=== PATIENT | female | born 1930 | race Caucasian/White ===

== ENCOUNTER 2018-11-27 10:23 | Inpatient (IN) | payer OTHER, BC ==
[2018-11-27 10:44] VITALS: BMI 29.0
[2018-11-27 12:32] LABS: BASO % 0.4 % (0-2.0); EOS % 2.4 % (0-4.5); HEMATOCRIT 38.9 % (32.4-45.2); HEMOGLOBIN 12.7 GM/dL (10.7-15.3); LYMPH % 39.9 % (8-40); MCH 28.3 pg (25.7-33.7); MCHC 32.6 g/dl (32.0-36.0); MEAN CELL VOLUME 86.8 fl (80-96); MEAN PLT VOLUME 9.5 fl (7.5-11.1); MONO % 7.3 % (3.8-10.2); PLATELET COUNT 236 K/MM3 (134-434); RBC 4.48 M/mm3 (3.60-5.2); RDW 14.5 % (11.6-15.6); WHITE BLOOD COUNT 10.8 K/mm3 (4.0-10.0)
[2018-11-27 12:35] LABS: PH,URINE 6.5 (5.0-8.0); URINE APPEARANCE CLEAR; URINE BILIRUBIN NEGATIVE (NEGATIVE); URINE COLOR YELLOW; URINE GLUCOSE (UA) NEGATIVE (NEGATIVE); URINE KETONE NEGATIVE (NEGATIVE); URINE LEUK ESTERASE NEGATIVE (NEGATIVE); URINE NITRITE NEGATIVE (NEGATIVE); URINE PROTEIN NEGATIVE (NEGATIVE)
[2018-11-27 12:46] LABS: INR 1.17 (0.83-1.09); PROTHROMBIN TIME (PATIENT) 13.8 SEC (9.7-13.0)
[2018-11-27 13:01] LABS: ALBUMIN 3.2 g/dl (3.4-5.0); ALK PHOS 102 U/L (45-117); ANION GAP 5 MMOL/L (8-16); BILIRUBIN,TOTAL 0.4 mg/dL (0.2-1); BLOOD UREA NITROGEN 44 mg/dL (7-18); CALCIUM 9.1 mg/dL (8.5-10.1); CHLORIDE 109 mmol/L (98-107); CO2 26 mmol/L (21-32); CREATININE 1.6 mg/dL (0.55-1.3); GLUCOSE,RANDOM 74 mg/dL (74-106); POTASSIUM 5.9 mmol/L (3.5-5.1); SGOT/AST 18 U/L (15-37); SGPT/ALT 14 U/L (13-61); SODIUM 140 mmol/L (136-145); TOT PROT 6.2 g/dl (6.4-8.2)
[2018-11-27] MEDS ORDERED: VANCOMYCIN 1,000 MG in DEXTROSE 5%-WATER - 250 ML IVPB ONE (13:06)
[2018-11-27] MEDS ORDERED: SODIUM CHLORIDE 0.9% 1000 ML INFUS.BAG IV ONE (13:11)
[2018-11-27] MEDS ORDERED: INSULIN REGULAR HUMAN 100 UNITS/ML *VIAL IVPUSH ONE (13:12)
[2018-11-27] MEDS ORDERED: DEXTROSE 50%-WATER - 25 GM/50 ML VIAL IVPUSH ONE (13:13)
[2018-11-27] MEDS ORDERED: VANCOMYCIN 1 GRAM (PRE-DOCKED) 1,000 MG/250 ML BAG IVPB ONE (13:27)
[2018-11-27] MEDS ORDERED: DEXTROSE 50%-WATER 25 GM/50 ML DISP.SYRIN ONE (13:27)
[2018-11-27] MEDS ORDERED: INSULIN REGULAR HUMAN 100 UNITS/ML *VIAL ONE (13:28)
--- NOTE | 2018-11-27 13:41 | PDOC ---
Documentation entered by Charlie Howard SCRIBE, acting as scribe for Magaly Melgar MD. Magaly Melgar MD: This documentation has been prepared by the Lee bailon Collisia, SCRIBE, under my direction and personally reviewed by me in its entirety. I confirm that the documentation accurately reflects all work, treatment, procedures, and medical decision making performed by me. History of Present Illness - General Chief Complaint: Wound Stated Complaint: LEG PAIN Time Seen by Provider: 11/27/18 11:19 History Source: Patient, Family Exam Limitations: No Limitations - History of Present Illness Initial Comments: 11/27/18 12:39 The patient is a 88 year old female with a significant past medical history of hyperlipidemia, hypertension, diabetes, lymphedema, hypothyroidism, left leg ulcer (2013) and CHF who presents to the emergency department with a left leg wound and redness since yesterday. The patient's daughter states that the patient was seen at urgent care yesterday for left leg erythema and drainage. They recommended a topical cream to apply to her leg and to return to daily for wound checks. Her daughter urged her to go to the ED today due to increasing pain and concern for infection. She denies any recent injury, numbness, tingling ,weakness or radiation or her pain. The patient denies any chills, nausea, vomiting, diarrhea, constipation urinary symptoms, chest pain, shortness of breath, headache or dizziness. She denies any other complaints. Past History - Past Medical History Allergies/Adverse Reactions: Allergies Allergy/AdvReac Type Severity Reaction Status Date / Time erythromycin base Allergy Intermediate Hives Verified 11/27/18 10:40 Penicillins Allergy Verified 11/27/18 14:18 Home Medications: Ambulatory Orders Levothyroxine [Synthroid -] 50 mcg PO DAILY 06/16/17 Lisinopril 10 mg PO DAILY 06/16/17 Memantine HCl [Namenda Xr] 28 mg PO DAILY 06/16/17 Metoprolol Succinate [Toprol Xl] 100 mg PO DAILY 06/16/17 Simvastatin 80 mg PO HS 06/16/17 metFORMIN HCL [Metformin HCl ER] 1,000 mg PO BID 06/16/17 Aspirin 81 mg PO DAILY 11/27/18 Anemia: No Asthma: No Cancer: No Cardiac Disorders: No CVA: Yes (TIA 1994) COPD: No CHF: No Dementia: No Diabetes: Yes GI Disorders: No Disorders: No HTN: Yes Hypercholesterolemia: Yes Liver Disease: No Seizures: No Thyroid Disease: Yes (HYPOTHYROIDISM) - Immunization History Immunization Up to Date: Yes - Suicide/Smoking/Psychosocial Hx Smoking History: Never smoked Hx Alcohol Use: No Drug/Substance Use Hx: No Review of Systems - Review of Systems Able to Perform ROS?: Yes Comments:: 11/27/18 12:39 GENERAL/CONSTITUTIONAL: No fever or chills. No weakness. HEAD, EYES, EARS, NOSE AND THROAT: No change in vision. No ear pain or discharge. No sore throat. GASTROINTESTINAL: No nausea, vomiting, diarrhea or constipation. GENITOURINARY: No dysuria, frequency, or change in urination. CARDIOVASCULAR: No chest pain or shortness of breath. RESPIRATORY: No cough, wheezing, or hemoptysis. MUSCULOSKELETAL: No joint or muscle swelling or pain. No neck or back pain. SKIN: (+)left leg erythema, pain and drainage. No rash NEUROLOGIC: No headache, vertigo, loss of consciousness, or change in strength/ sensation. ENDOCRINE: No increased thirst. No abnormal weight change. HEMATOLOGIC/LYMPHATIC: No anemia, easy bleeding, or history of blood clots. ALLERGIC/IMMUNOLOGIC: No hives or skin allergy. *Physical Exam - Vital Signs Last Vital Signs Temp Pulse Resp BP Pulse Ox 97.6 F 59 L 17 127/48 L 95 11/27/18 10:40 11/27/18 10:40 11/27/18 10:40 11/27/18 10:40 11/27/18 10:40 - Physical Exam Comments: 11/27/18 13:26 GENERAL: Awake, alert, oriented to name and place, in no acute distress EYES: PERRLA, EOMI, sclera anicteric, conjunctiva clear ENT: Oropharynx clear without exudates. Moist mucosa NECK: Normal ROM, supple, no lymphadenopathy, JVD, or masses LUNGS: Breath sounds equal, clear to auscultation bilaterally. No wheezes, and no crackles HEART: Regular rate and rhythm, normal S1 and S2, no murmurs, rubs or gallops ABDOMEN: Soft, nontender, normoactive bowel sounds. No guarding, no rebound. No masses EXTREMITIES: L distal calf with warmth, erythema and induration. 2+ DP pulse in LLE. NEUROLOGICAL: Normal speech, cranial nerves intact, equal strength and sensation b/l SKIN: Warm, Dry, normal turgor, no rashes or lesions noted. Heart Score/ECG Review #1 11/27/18 13:29 Twelve-lead EKG was performed and reviewed by me. Sinus bradycardia, rate 58. Normal axis. No ST elevations. No peaked T waves. ED Treatment Course - LABORATORY CBC & Chemistry Diagram: 11/28/18 06:30 11/28/18 06:30 - ADDITIONAL ORDERS Additional order review: Laboratory Results 11/27/18 11/27/18 11/27/18 12:10 12:10 11:55 PT with INR INR Sodium 140 Potassium 5.9 H Chloride 109 H Carbon Dioxide 26 Anion Gap 5 L BUN 44 H Creatinine 1.6 H Creat Clearance w eGFR 30.49 Random Glucose 74 Lactic Acid 1.0 Calcium 9.1 Total Bilirubin 0.4 AST 18 ALT 14 Alkaline Phosphatase 102 B-Natriuretic Peptide 802.3 H Total Protein 6.2 L Albumin 3.2 L Urine Color Urine Appearance Urine pH Ur Specific [place] Urine Protein Urine Glucose (UA) Urine Ketones Urine Blood Urine Nitrite Urine Bilirubin Urine Urobilinogen Ur Leukocyte Esterase 11/27/18 11/27/18 11:55 11:55 PT with INR 13.80 H INR 1.17 H Sodium Potassium Chloride Carbon Dioxide Anion Gap BUN Creatinine Creat Clearance w eGFR Random Glucose Lactic Acid Calcium Total Bilirubin AST ALT Alkaline Phosphatase B-Natriuretic Peptide Total Protein Albumin Urine Color Yellow Urine Appearance Clear Urine pH 6.5 Ur Specific [place] 1.025 Urine Protein Negative Urine Glucose (UA) Negative Urine Ketones Negative Urine Blood Negative Urine Nitrite Negative Urine Bilirubin Negative Urine Urobilinogen 1.0 Ur Leukocyte Esterase Negative 11/27/18 12:10 RBC 4.48 MCV 86.8 MCHC 32.6 RDW 14.5 MPV 9.5 Neutrophils % 50.0 Lymphocytes % 39.9 Monocytes % 7.3 Eosinophils % 2.4 Basophils % 0.4 - RADIOLOGY Radiology Studies Ordered: Category Date Time Status CHEST X-RAY PORTABLE* [RAD] Stat Radiology 11/27/18 11:56 Completed Medical Decision Making - Medical Decision Making 11/27/18 13:29 88yo F hx DM,HTN, HL, CHF presents to the ED with increasing distal LLE pain, redness, drainage c/f cellulitis. Vitals unremarkable. Exam consistent with cellultiis. In light of hx of DM, will cover empirically with vancomycin and G neg coverage - given mavis and PCN allergy will consult ID on dose/agent. PT stable hemodynamically . Labs with MAVIS to 44/1.6 and hyperK to 5.9. Treating with NS 500cc, D50 amp, Insulin 5 units Case discussed with Dr. oCuch, pt accepted for admission Case discussed in detail with admitting physician including history, physical exam and ancillary studies. Admitting physician has assumed care for the patient, will follow all pending diagnostics and will complete the evaluation and treatment. 11/27/18 16:[address] Holbrook, informed him that I covered the pt with Vanco but deferred to him for G- cvg given MAVIS and PCN allergy. Dr. Holbrook states he will order abx. *DC/Admit/Observation/Transfer Diagnosis at time of Disposition: Cellulitis - Discharge Dispostion Condition at time of disposition: Stable Decision to Admit order: Yes - Referrals - Patient Instructions - Post Discharge Activity - Attestations Physician Attestion: 11/27/18 14:10 I, Dr. Magaly Melgar MD, attest that this document has been prepared under my direction and personally reviewed by me in its entirety. I further attest, that it accurately reflects all work, treatment, procedures and medical decision -making performed by me.
[2018-11-27] MEDS ORDERED: METFORMIN HCL 1000 MG PO SCH (22:00)
[2018-11-27] MEDS ORDERED: [UNRECOGNIZED DRUG - OTHER] PO SCH (22:00)
[2018-11-27] MEDS: MEMANTINE HCL 10 MG TABLET (FP) PO SCH (23:04)
[2018-11-27] MEDS: ATORVASTATIN CA 80 MG TABLET (FP) PO SCH (23:04)
[2018-11-28] MEDS: LEVOTHYROXINE NA 50 MCG TABLET (FP) PO SCH (06:19)
[2018-11-28 07:15] LABS: HEMATOCRIT 38.6 % (32.4-45.2); HEMOGLOBIN 12.4 GM/dL (10.7-15.3); MCH 28.2 pg (25.7-33.7); MCHC 32.3 g/dl (32.0-36.0); MEAN CELL VOLUME 87.5 fl (80-96); MEAN PLT VOLUME 9.8 fl (7.5-11.1); PLATELET COUNT 219 K/MM3 (134-434); RBC 4.41 M/mm3 (3.60-5.2); RDW 14.5 % (11.6-15.6); WHITE BLOOD COUNT 12.2 K/mm3 (4.0-10.0)
[2018-11-28 07:58] LABS: ANION GAP 7 MMOL/L (8-16); BLOOD UREA NITROGEN 36 mg/dL (7-18); CALCIUM 8.9 mg/dL (8.5-10.1); CHLORIDE 108 mmol/L (98-107); CO2 25 mmol/L (21-32); CREATININE 1.6 mg/dL (0.55-1.3); GLUCOSE,RANDOM 82 mg/dL (74-106); SODIUM 140 mmol/L (136-145)
[2018-11-28] MEDS ORDERED: VANCOMYCIN 1 GM PREMIX - 1 GM/200 ML BAG IVPB ONE (09:11)
[2018-11-28] MEDS ORDERED: LISINOPRIL 5 MG TABLET (FP) PO SCH (10:00)
[2018-11-28] MEDS ORDERED: LEVOTHYROXINE NA 50 MCG TABLET (FP) PO SCH (10:00)
[2018-11-28] MEDS ORDERED: PT OWN MED DRAWER 7, Y5N ONE (10:04)
--- NOTE | 2018-11-28 10:19 | PN ---
Progress Note (short form) - Note Progress Note: ID CONSULT DICTATED CELLULITIS L LE +BC R/O SEPSIS SECONDARY TO SKIN SOURCE PCN ALLERGY AZOTEMIA AWAIT BC EMPIRIC VANCOMYCIN ELEVATION
[2018-11-28] MEDS: MEMANTINE HCL 10 MG TABLET (FP) PO SCH ×2 (10:43→21:10)
[2018-11-28] MEDS: ASPIRIN 81 MG CHEWABLE TABLETS PO SCH (10:43)
--- NOTE | 2018-11-28 10:58 | CONS ---
DATE OF CONSULTATION: DATE OF DICTATION: 11/28/2018 HISTORY OF PRESENT ILLNESS: The patient is an 88-year-old female evaluated for cellulitis of the left lower extremity. The patient does not give a reliable history. She states that approximately 1 day ago, she had developed erythema, warmth, and swelling of the left lower extremity. She had been seen in an urgent care center and was prescribed a topical ointment. She developed worsening pain and erythema. She presented to the emergency room where she was found to have cellulitis of the left lower extremity. She was empirically treated with vancomycin. She denies any traumatic injury to her left lower extremity. No insect or animal bites or scratches. She denies any associated fever or chills. No prior history of serious soft tissue infection requiring hospitalization or history of MRSA. According to the notes, [facility] Her last visit was in August of 2017 for a left leg wound, which completely healed. PAST MEDICAL HISTORY: Positive for chronic lower extremity lymphedema, hypertension, hyperlipidemia, diabetes mellitus, hypothyroidism, history of a left lower extremity ulcer, congestive heart failure. ALLERGIES: To PENICILLIN and ERYTHROMYCIN. Patient is unaware of the nature of the PENICILLIN allergy. MEDICATIONS: Include Synthroid, lisinopril, Namenda, Toprol, simvastatin, metformin, aspirin. SOCIAL HISTORY: She resides in the community. She is a nonsmoker, nondrinker. SYSTEMS REVIEW: Neurologic: No loss of consciousness, seizure activity, or focal weakness. Cardiac: Negative for chest pain or palpitations. Respiratory: Negative for cough or sputum production. Gastrointestinal: Negative for vomiting or diarrhea. Genitourinary: As per HPI. LABORATORY DATA: White count 12.2, hematocrit 38.6, platelet count 219. BUN 36, creatinine 1.6. Urine leukocyte esterase negative. Liver enzymes normal. PHYSICAL EXAMINATION: General: She is awake and alert, supine in bed, in no acute distress. Vital signs: Temperature 98.0, blood pressure 139/66, pulse 58 and regular, respirations 20 per minute. HEENT: Sclerae anicteric. Heart: Heart sounds S1, S2. Lungs: Clear. Abdomen: Obese, soft, nontender. Extremities: Examination of the lower extremities, bilateral lower extremity edema. There is a 2-cm bullous lesion present over the medial aspect of the distal pretibial area. There is erythema extending from the area of the ankle to the mid tibia. It is warm to touch, extends to the calf area. No crepitus or fluctuance. No lymphangitic streaking. IMPRESSION: 1. Cellulitis, left lower extremity. 2. Positive blood culture, strep species, rule out sepsis secondary to skin source. 3. PENICILLIN allergy. 4. Azotemia. Await identification of blood isolate. Will redose vancomycin, obtain random vancomycin level in a.m. and redose accordingly, elevation, analgesics. Will follow. Thank you for the kind referral. ANNE VARGAS M.D. [id number]
[2018-11-28] MEDS: VANCOMYCIN 1 GM PREMIX - 1 GM/200 ML BAG IVPB SCH (12:40)
--- NOTE | 2018-11-28 14:23 | EKG ---
Test Reason : Blood Pressure : / mmHG Vent. Rate : 058 BPM Atrial Rate : 058 BPM P-R Int : 168 ms QRS Dur : 078 ms QT Int : 448 ms P-R-T Axes : 032 -15 015 degrees QTc Int : 439 ms SINUS BRADYCARDIA INFERIOR INFARCT , AGE UNDETERMINED ANTEROLATERAL INFARCT , AGE UNDETERMINED ABNORMAL ECG NO PREVIOUS ECGS AVAILABLE Confirmed by MD SAMARA, MICHAEL ([id number]) on 11/28/2018 2:22:42 PM Referred By: Confirmed By:MICHAEL PASCUAL MD
--- NOTE | 2018-11-28 14:26 | HP ---
Admitting History and Physical - Primary Care Physician PCP: Gissel Couch I - Admission Chief Complaint: LLE infection History of Present Illness: 88 year old female from assisted living residence with a significant past medical history of hyperlipidemia, hypertension, diabetes, lymphedema, hypothyroidism, left leg ulcer (2013) and CHF who presents to the emergency department with a left leg wound and redness for the past several days. The patient's daughter states that the patient was seen at urgent care 2 days ago for left leg erythema and drainage. They recommended a topical cream to apply to her leg and to return to daily for wound checks. Her daughter urged her to go to the ED today due to increasing pain and concern for infection. She denies any recent injury, numbness, tingling ,weakness or radiation or her pain. The patient denies any chills, nausea, vomiting, diarrhea, constipation urinary symptoms, chest pain, shortness of breath, headache or dizziness, but daughter stated that she had slurring of speech 2 days ago that seems to have resolved. daughter raises concern as to whether or not she is properly caring for herself on her own. History Source: Patient, Family Member Limitations to Obtaining History: No Limitations - Past Medical History EXCEL EXPERT: Yes: Dementia (mild; for which she was Rx'd Namenda), TIA, Other (told to having had MS in her 20's but disease has never progressed and never caused impairment or disability) Cardiovascular: Yes: CHF, HTN, Hyperlipdemia Renal/: Yes: Renal Inusuff ...: No Musculoskeletal: Yes: Osteoarthritis (degen dz) Endocrine: Yes: Diabetes Mellitus Dermatology: Yes: Other (fungal rashes) - Past Surgical History Past Surgical History: Yes: Cataract Removal, Hysterectomy Additional Past Surgical History: spinal surgery - Smoking History Smoking history: Never smoked - Alcohol/Substance Use Hx Alcohol Use: No Home Medications - Allergies Allergies/Adverse Reactions: Allergies Allergy/AdvReac Type Severity Reaction Status Date / Time erythromycin base Allergy Intermediate Hives Verified 11/27/18 10:40 Penicillins Allergy Verified 11/27/18 14:18 - Home Medications Home Medications: Ambulatory Orders Levothyroxine [Synthroid -] 50 mcg PO DAILY 06/16/17 Lisinopril 10 mg PO DAILY 06/16/17 Memantine HCl [Namenda Xr] 28 mg PO DAILY 06/16/17 Metoprolol Succinate [Toprol Xl] 100 mg PO DAILY 06/16/17 Simvastatin 80 mg PO HS 06/16/17 metFORMIN HCL [Metformin HCl ER] 1,000 mg PO BID 06/16/17 Aspirin 81 mg PO DAILY 11/27/18 Family Disease History - Family Disease History Family History: Unremarkable Review of Systems - Review of Systems Constitutional: reports: Malaise Eyes: reports: No Symptoms HENT: reports: No Symptoms Neck: reports: No Symptoms Cardiovascular: reports: No Symptoms Respiratory: reports: No Symptoms Gastrointestinal: reports: No Symptoms Genitourinary: reports: No Symptoms Breasts: reports: No Symptoms Reported Musculoskeletal: reports: Back Pain, Muscle Pain Integumentary: reports: Rash Neurological: reports: Change in Speech (resolved), Other (forgetfullness) Endocrine: reports: No Symptoms Hematology/Lymphatic: reports: No Symptoms Psychiatric: reports: No Symptoms Physical Examination Vital Signs: Vital Signs Temperature 98.0 F 11/28/18 06:00 Pulse Rate 58 L 11/28/18 06:00 Respiratory Rate 20 11/28/18 06:00 Blood Pressure 139/66 11/28/18 06:00 O2 Sat by Pulse Oximetry (%) 100 11/27/18 21:00 Findings/Remarks: skin--erythema on LLE with blistering; no streaking; also red rash under breasts & groin head--NC eyes--conj clear; EOMI; oral--no mucosal lesions appreciated neck--no masses appreciated lungs--grossly clear heart--RR breasts--no masses, disch, appreciated abd--obese, NT, ND, BS+ back--no CVAT, no eliu tenderness ext--trace edema; bilat; dimnished DP's, degen changes; no soft tissue tenderness neuro--alert; coherent; no gross motor/sens/speech deficits; some cogn deficts ( shiort term memeory) Labs: CBC, BMP 11/28/18 06:30 11/28/18 06:30 Imaging - Results Chest X-ray: Image Reviewed Problem List - Problems (1) Cellulitis of leg without foot Assessment/Plan: start IV Abs as per ID, and topical care Code(s): L03.119 - CELLULITIS OF UNSPECIFIED PART OF LIMB (2) Bacteremia due to Gram-positive bacteria Assessment/Plan: prelim findings demonstrate Strept; ID aware; on Vanco, Code(s): R78.81 - BACTEREMIA (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 Assessment/Plan: on ADOLFO & BB; no signs of active CHF; cont same Code(s): I13.10 - HYP HRT & CHR KDNY DIS W/O HRT FAIL, W STG 1-4/UNSP CHR KDNY Qualifiers: Chronic kidney disease stage: stage 2 (mild) Heart failure presence: without heart failure Qualified Code(s): I13.10 - Hypertensive heart and chronic kidney disease without heart failure, with stage 1 through stage 4 chronic kidney disease, or unspecified chronic kidney disease; N18.2 - Chronic kidney disease, stage 2 (mild) (4) Hypothyroid Assessment/Plan: seems euthryroid; check TSH Code(s): E03.9 - HYPOTHYROIDISM, UNSPECIFIED Qualifiers: Hypothyroidism type: acquired Qualified Code(s): E03.9 - Hypothyroidism, unspecified (5) Lipidemia Assessment/Plan: cont statin Code(s): E78.5 - HYPERLIPIDEMIA, UNSPECIFIED Qualifiers: Hyperlipidemia type: unspecified Qualified Code(s): E78.5 - Hyperlipidemia , unspecified (6) TIA (transient ischemic attack) Assessment/Plan: family relays some slurring of speech which has just resolved; given Hx of HTn, DM and past TIA, will get head CT. 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
[2018-11-28] MEDS ORDERED: IBUPROFEN 400 MG TABLET (FP) PO PRN (14:39)
[2018-11-28] MEDS: ACETAMINOPHEN 325 MG TABLET (FP) PO PRN (14:50)
[2018-11-28] MEDS: LISINOPRIL 10 MG TABLET (FP) PO SCH (15:14)
[2018-11-28] MEDS: NYSTATIN POWDER 100,000 UNITS/GM - 15 GM TOPICAL POWDER TP SCH (18:31)
[2018-11-28] MEDS: MUPIROCIN 2% TOPICAL OINTMENT 22 GM TUBE TP SCH (21:10)
[2018-11-28] MEDS: ATORVASTATIN CA 80 MG TABLET (FP) PO SCH (21:10)
[2018-11-29] MEDS: LEVOTHYROXINE NA 50 MCG TABLET (FP) PO SCH (06:19)
[2018-11-29 07:37] LABS: HEMATOCRIT 37.4 % (32.4-45.2); HEMOGLOBIN 12.5 GM/dL (10.7-15.3); MCH 29.2 pg (25.7-33.7); MCHC 33.3 g/dl (32.0-36.0); MEAN CELL VOLUME 87.6 fl (80-96); MEAN PLT VOLUME 9.6 fl (7.5-11.1); PLATELET COUNT 194 K/MM3 (134-434); RBC 4.27 M/mm3 (3.60-5.2); RDW 14.3 % (11.6-15.6); WHITE BLOOD COUNT 10.3 K/mm3 (4.0-10.0)
[2018-11-29 08:37] LABS: ANION GAP 7 MMOL/L (8-16); BLOOD UREA NITROGEN 31 mg/dL (7-18); CALCIUM 8.6 mg/dL (8.5-10.1); CHLORIDE 109 mmol/L (98-107); CO2 25 mmol/L (21-32); CREATININE 1.5 mg/dL (0.55-1.3); GLUCOSE,RANDOM 83 mg/dL (74-106); POTASSIUM 4.3 mmol/L (3.5-5.1); SODIUM 140 mmol/L (136-145)
[2018-11-29] MEDS: ENOXAPARIN NA (PORCINE) 40 MG/0.4 ML DISP.SYRIN SQ SCH (11:05)
[2018-11-29] MEDS: ASPIRIN 81 MG CHEWABLE TABLETS PO SCH (11:06)
[2018-11-29] MEDS: LISINOPRIL 10 MG TABLET (FP) PO SCH (11:06)
[2018-11-29] MEDS: MEMANTINE HCL 10 MG TABLET (FP) PO SCH ×2 (11:06→21:01)
[2018-11-29] MEDS: VANCOMYCIN 1 GM PREMIX - 1 GM/200 ML BAG IVPB SCH (11:07)
[2018-11-29] MEDS: NYSTATIN POWDER 100,000 UNITS/GM - 15 GM TOPICAL POWDER TP SCH (11:08)
[2018-11-29] MEDS: MUPIROCIN 2% TOPICAL OINTMENT 22 GM TUBE TP SCH (11:08)
--- NOTE | 2018-11-29 12:02 | PN ---
Progress Note (short form) - Note Progress Note: ........................ Medical cover note ........................... Current Medications Acetaminophen (Tylenol -) 650 mg PO Q6H PRN PRN Reason: PAIN Last Admin: 11/28/18 14:50 Dose: 650 mg Aspirin (Asa -) 81 mg PO DAILY [facility] Last Admin: 11/29/18 11:06 Dose: 81 mg Atorvastatin Calcium (Lipitor -) 80 mg PO HS [facility] Last Admin: 11/28/18 21:10 Dose: 80 mg Enoxaparin Sodium (Lovenox -) 40 mg SQ DAILY [facility] Last Admin: 11/29/18 11:05 Dose: 40 mg Vancomycin HCl (Vancomycin 1 Gm Premix -) 1 gm in 200 mls @ 133.333 mls/hr IVPB Q24H [facility]; Protocol Last Admin: 11/29/18 11:07 Dose: 133.333 mls/hr Ibuprofen (Motrin -) 400 mg PO DAILY PRN PRN Reason: PAIN LEVEL 1 - 3 Levothyroxine Sodium (Synthroid -) 50 mcg PO 0700 [facility] Last Admin: 11/29/18 06:19 Dose: 50 mcg Memantine (Namenda -) 10 mg PO BID [facility] Last Admin: 11/29/18 11:06 Dose: 10 mg Metoprolol Succinate (Toprol Xl -) 100 mg PO DAILY [facility] Last Admin: 11/29/18 11:06 Dose: 100 mg Mupirocin (Bactroban 2% Ointment -) 1 applic TP BID [facility] Last Admin: 11/29/18 11:08 Dose: 1 applic Nystatin (Nystop Powder -) 1 applic TP DAILY [facility] Last Admin: 11/29/18 11:08 Dose: 1 applic Laboratory Results - last 24 hr 11/29/18 11/29/18 11/29/18 06:00 06:45 06:45 WBC 10.3 H RBC 4.27 Hgb 12.5 Hct 37.4 MCV 87.6 MCH 29.2 MCHC 33.3 RDW 14.3 Plt Count 194 MPV 9.6 Sodium 140 Potassium 4.3 Chloride 109 H Carbon Dioxide 25 Anion Gap 7 L BUN 31 H Creatinine 1.5 H Creat Clearance w eGFR 32.85 Random Glucose 83 Hemoglobin A1c % Calcium 8.6 TSH 3.85 H Random Vancomycin 12.5 L 11/29/18 06:45 WBC RBC Hgb Hct MCV MCH MCHC RDW Plt Count MPV Sodium Potassium Chloride Carbon Dioxide Anion Gap BUN Creatinine Creat Clearance w eGFR Random Glucose Hemoglobin A1c % 6.3 Calcium TSH Random Vancomycin Vital Signs Temperature 97.9 F 11/29/18 10:00 Pulse Rate 63 11/29/18 10:00 Respiratory Rate 20 11/29/18 10:00 Blood Pressure 114/50 L 11/29/18 10:00 O2 Sat by Pulse Oximetry (%) 95 11/28/18 21:00 CC; no abd pains, no aching this AM ```````````````````````````````````` skin--erythema on the LLE (less red) w/ some blisters; rash under breasts and groin face--no droop heart--RR abd--NT, BS+ ext--no edema neuro--alert; speech fluent; moves all extrem well; pleasant mood thoughgts organized; but short term memory is impaired ```````````````````````````````````` Summ > Bacteremia--Strept ( enterococcus), full ID not back yet; not toxic or ill appearing, cont Vanco. > DM--AM glucose was 83; check BGMs; A1c at 6.3, if high resume Metformin > Htn--with renal insufficiency; BP on low end; will cut dose of Lisinopril > Hypothyroid--TSH a bit high; check FT4 > Dementia--affecting short term memory domain the most; head CT shows some atrophy, no other lesions; On Namenda; may need further Neuro eval > Fungal dermatitis--skin folds; on Nystatin powder ~~~~~~~~~~~~~~~~ Dr Griffith Problem List - Problems (1) Cellulitis of leg without foot Code(s): L03.119 - CELLULITIS OF UNSPECIFIED PART OF LIMB (2) Bacteremia due to Gram-positive bacteria Code(s): R78.81 - BACTEREMIA (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 Code(s): I13.10 - HYP HRT & CHR KDNY DIS W/O HRT FAIL, W STG 1-4/UNSP CHR KDNY Qualifiers: Chronic kidney disease stage: stage 2 (mild) Heart failure presence: without heart failure Qualified Code(s): I13.10 - Hypertensive heart and chronic kidney disease without heart failure, with stage 1 through stage 4 chronic kidney disease, or unspecified chronic kidney disease; N18.2 - Chronic kidney disease, stage 2 (mild) (4) Hypothyroid Code(s): E03.9 - HYPOTHYROIDISM, UNSPECIFIED Qualifiers: Hypothyroidism type: acquired Qualified Code(s): E03.9 - Hypothyroidism, unspecified (5) Lipidemia Code(s): E78.5 - HYPERLIPIDEMIA, UNSPECIFIED Qualifiers: Hyperlipidemia type: unspecified Qualified Code(s): E78.5 - Hyperlipidemia , unspecified (6) TIA (transient ischemic attack) Code(s): G45.9 - TRANSIENT CEREBRAL ISCHEMIC ATTACK, UNSPECIFIED (7) History of multiple sclerosis Code(s): Z86.69 - PERSONAL HISTORY OF DIS OF THE NERVOUS SYS AND SENSE ORGANS (8) Diabetes type 2, controlled Code(s): E11.9 - TYPE 2 DIABETES MELLITUS WITHOUT COMPLICATIONS Qualifiers: Diabetes mellitus computer terminal operator insulin use: without assisted use Chronic kidney disease stage: stage 2 (mild) (9) Fungal dermatitis Code(s): B36.9 - SUPERFICIAL MYCOSIS, UNSPECIFIED (10) Dementia Code(s): F03.90 - UNSPECIFIED DEMENTIA WITHOUT BEHAVIORAL DISTURBANCE Qualifiers: Alzheimer's disease onset: late-onset Dementia behavioral disturbance: without behavioral disturbance
[2018-11-29] MEDS: ATORVASTATIN CA 80 MG TABLET (FP) PO SCH (21:00)
--- NOTE | 2018-11-29 22:28 | PN ---
Progress Note, Physician History of Present Illness: NO C/O LEG PAIN NO C/O FEVER/ CHILLS TOLERATING ANTIBIOTICS - Current Medication List Current Medications: Active Medications Acetaminophen (Tylenol -) 650 mg PO Q6H PRN PRN Reason: PAIN Last Admin: 11/28/18 14:50 Dose: 650 mg Aspirin (Asa -) 81 mg PO DAILY [facility] Last Admin: 11/29/18 11:06 Dose: 81 mg Atorvastatin Calcium (Lipitor -) 80 mg PO HS [facility] Last Admin: 11/29/18 21:00 Dose: 80 mg Enoxaparin Sodium (Lovenox -) 40 mg SQ DAILY [facility] Last Admin: 11/29/18 11:05 Dose: 40 mg Vancomycin HCl (Vancomycin 1 Gm Premix -) 1 gm in 200 mls @ 133.333 mls/hr IVPB Q24H [facility]; Protocol Last Admin: 11/29/18 11:07 Dose: 133.333 mls/hr Ibuprofen (Motrin -) 400 mg PO DAILY PRN PRN Reason: PAIN LEVEL 1 - 3 Levothyroxine Sodium (Synthroid -) 50 mcg PO 0700 [facility] Last Admin: 11/29/18 06:19 Dose: 50 mcg Lisinopril (Prinivil) 5 mg PO DAILY [facility] Memantine (Namenda -) 10 mg PO BID [facility] Last Admin: 11/29/18 21:01 Dose: 10 mg Metoprolol Succinate (Toprol Xl -) 100 mg PO DAILY [facility] Last Admin: 11/29/18 11:06 Dose: 100 mg Mupirocin (Bactroban 2% Ointment -) 1 applic TP BID [facility] Last Admin: 11/29/18 11:08 Dose: 1 applic Nystatin (Nystop Powder -) 1 applic TP DAILY [facility] Last Admin: 11/29/18 11:08 Dose: 1 applic - Objective Vital Signs: Vital Signs Temperature 98 F 11/29/18 20:41 Pulse Rate 63 11/29/18 20:41 Respiratory Rate 18 11/29/18 20:41 Blood Pressure 153/62 11/29/18 20:41 O2 Sat by Pulse Oximetry (%) 95 11/29/18 09:00 Constitutional: Yes: No Distress Cardiovascular: Yes: Regular Rate and Rhythm, S1, S2 Respiratory: Yes: CTA Bilaterally Gastrointestinal: Yes: Normal Bowel Sounds, Soft Extremities: Yes: Other (DECREASES ERYTHEMA/ WARMTH L LE) Labs: CBC, BMP 11/29/18 06:45 11/29/18 06:45 INR, PTT INR 1.17 (0.83-1.09) H 11/27/18 11:55 Assessment/Plan CELLULITIS SEPSIS SECONDARY TO SKIN INFECTION PCN ALLERGY AWAIT C/S CONTINUE VANCOMYCIN
[2018-11-30] MEDS: MUPIROCIN 2% TOPICAL OINTMENT 22 GM TUBE TP SCH ×3 (04:33→22:16)
[2018-11-30] MEDS: LEVOTHYROXINE NA 50 MCG TABLET (FP) PO SCH (06:03)
[2018-11-30 07:36] LABS: ANION GAP 7 MMOL/L (8-16); BLOOD UREA NITROGEN 32 mg/dL (7-18); CALCIUM 8.2 mg/dL (8.5-10.1); CHLORIDE 109 mmol/L (98-107); CO2 26 mmol/L (21-32); CREATININE 1.5 mg/dL (0.55-1.3); GLUCOSE,RANDOM 95 mg/dL (74-106); POTASSIUM 4.1 mmol/L (3.5-5.1); SODIUM 142 mmol/L (136-145)
[2018-11-30] MEDS ORDERED: PT OWN MED DRAWER 7, Y5N ONE (10:25)
[2018-11-30] MEDS: MEMANTINE HCL 10 MG TABLET (FP) PO SCH ×2 (10:27→22:15)
[2018-11-30] MEDS: LISINOPRIL 5 MG TABLET (FP) PO SCH (10:27)
[2018-11-30] MEDS: ASPIRIN 81 MG CHEWABLE TABLETS PO SCH (10:27)
[2018-11-30] MEDS: ENOXAPARIN NA (PORCINE) 40 MG/0.4 ML DISP.SYRIN SQ SCH (10:28)
[2018-11-30] MEDS: NYSTATIN POWDER 100,000 UNITS/GM - 15 GM TOPICAL POWDER TP SCH (10:31)
--- NOTE | 2018-11-30 11:30 | PN ---
Progress Note (short form) - Note Progress Note: patient seen and examined in her room legs elevated Vital Signs Period Temp Pulse Resp BP Sys/Recinos Pulse Ox Last 24 Hr 97.9 F-98.3 F 56-67 18-20 126-157/56-64 96 neck supple heart S1/S2 lungs clear bilat abd soft non tender ext no significant erythema briscoe noted from admission date + pulses CBC, BMP 11/29/18 06:45 11/30/18 06:20 Microbiology 11/27/18 12:10 Blood - Peripheral Venous Blood Culture - Preliminary Pending Organism 11/27/18 12:10 Blood - Peripheral Venous Blood Culture - Preliminary Group D Strep Or Entero Coccus Pending Organism#2 11/27/18 11:55 Urine - Urine - Catheterized Urine Culture - Final NO GROWTH OBTAINED Active Medications Acetaminophen (Tylenol -) 650 mg PO Q6H PRN PRN Reason: PAIN Last Admin: 11/28/18 14:50 Dose: 650 mg Aspirin (Asa -) 81 mg PO DAILY [facility] Last Admin: 11/30/18 10:27 Dose: 81 mg Atorvastatin Calcium (Lipitor -) 80 mg PO HS [facility] Last Admin: 11/29/18 21:00 Dose: 80 mg Enoxaparin Sodium (Lovenox -) 40 mg SQ DAILY [facility] Last Admin: 11/30/18 10:28 Dose: 40 mg Vancomycin HCl (Vancomycin 1 Gm Premix -) 1 gm in 200 mls @ 133.333 mls/hr IVPB Q24H [facility]; Protocol Last Admin: 11/29/18 11:07 Dose: 133.333 mls/hr Ibuprofen (Motrin -) 400 mg PO DAILY PRN PRN Reason: PAIN LEVEL 1 - 3 Levothyroxine Sodium (Synthroid -) 50 mcg PO 0700 [facility] Last Admin: 11/30/18 06:03 Dose: 50 mcg Lisinopril (Prinivil) 5 mg PO DAILY [facility] Last Admin: 11/30/18 10:27 Dose: 5 mg Memantine (Namenda -) 10 mg PO BID [facility] Last Admin: 11/30/18 10:27 Dose: 10 mg Metoprolol Succinate (Toprol Xl -) 100 mg PO DAILY [facility] Last Admin: 11/30/18 10:27 Dose: 100 mg Mupirocin (Bactroban 2% Ointment -) 1 applic TP BID [facility] Last Admin: 11/30/18 09:15 Dose: 1 applic Nystatin (Nystop Powder -) 1 applic TP DAILY [facility] Last Admin: 11/30/18 10:31 Dose: 1 applic # Cellulitis + blood c/s awaiting sensitivity -- continue Vanco patient clinically improved # DM ada diet metformin on hold due to renal function continue to monitor BS will resume meds if needed # HTN BP trending low lisinopril decreased #Hypothyroid TSH / T4 # Dementia at baseline continue namenda
[2018-11-30] MEDS: VANCOMYCIN 1 GM PREMIX - 1 GM/200 ML BAG IVPB SCH (13:56)
[2018-11-30] MEDS: ACETAMINOPHEN 325 MG TABLET (FP) PO PRN (14:06)
[2018-11-30] MEDS: ATORVASTATIN CA 80 MG TABLET (FP) PO SCH (22:14)
[2018-12-01] MEDS: LEVOTHYROXINE NA 50 MCG TABLET (FP) PO SCH (06:23)
[2018-12-01 07:52] LABS: BASO % 0.5 % (0-2.0); EOS % 3.7 % (0-4.5); HEMATOCRIT 34.9 % (32.4-45.2); HEMOGLOBIN 11.3 GM/dL (10.7-15.3); LYMPH % 42.9 % (8-40); MCH 28.1 pg (25.7-33.7); MCHC 32.5 g/dl (32.0-36.0); MEAN CELL VOLUME 86.4 fl (80-96); MEAN PLT VOLUME 9.3 fl (7.5-11.1); MONO % 8.7 % (3.8-10.2); NEUT % 44.2 % (42.8-82.8); PLATELET COUNT 196 K/MM3 (134-434); RBC 4.04 M/mm3 (3.60-5.2); RDW 14.4 % (11.6-15.6); WHITE BLOOD COUNT 11.3 K/mm3 (4.0-10.0)
[2018-12-01 08:15] LABS: ANION GAP 7 MMOL/L (8-16); BLOOD UREA NITROGEN 32 mg/dL (7-18); CHLORIDE 108 mmol/L (98-107); CO2 28 mmol/L (21-32); CREATININE 1.2 mg/dL (0.55-1.3); GLUCOSE,RANDOM 93 mg/dL (74-106); POTASSIUM 3.8 mmol/L (3.5-5.1); SODIUM 143 mmol/L (136-145)
[2018-12-01] MEDS: LISINOPRIL 5 MG TABLET (FP) PO SCH (10:57)
[2018-12-01] MEDS: ENOXAPARIN NA (PORCINE) 40 MG/0.4 ML DISP.SYRIN SQ SCH (10:58)
[2018-12-01] MEDS: MEMANTINE HCL 10 MG TABLET (FP) PO SCH ×2 (10:58→22:24)
[2018-12-01] MEDS: ASPIRIN 81 MG CHEWABLE TABLETS PO SCH (10:58)
[2018-12-01] MEDS: NYSTATIN POWDER 100,000 UNITS/GM - 15 GM TOPICAL POWDER TP SCH (10:59)
[2018-12-01] MEDS: MUPIROCIN 2% TOPICAL OINTMENT 22 GM TUBE TP SCH ×2 (10:59→22:23)
[2018-12-01] MEDS: VANCOMYCIN 1 GM PREMIX - 1 GM/200 ML BAG IVPB SCH (12:38)
--- NOTE | 2018-12-01 12:55 | PN ---
Progress Note (short form) - Note Progress Note: patient seen and examined in her room legs elevated Vital Signs Period Temp Pulse Resp BP Sys/Recinos Pulse Ox Last 24 Hr 97.9 F-98.3 F 56-67 18-20 126-157/56-64 96 neck supple heart S1/S2 lungs clear bilat abd soft non tender ext no significant erythema briscoe noted from admission date + pulses CBC, BMP 11/29/18 06:45 11/30/18 06:20 Microbiology 11/27/18 12:10 Blood - Peripheral Venous Blood Culture - Final Enterococcus Faecalis Staphylococcus Epidermidis 11/27/18 12:10 Blood - Peripheral Venous Blood Culture - Preliminary Pending Organism 11/27/18 11:55 Urine - Urine - Catheterized Urine Culture - Final NO GROWTH OBTAINED Active Medications Acetaminophen (Tylenol -) 650 mg PO Q6H PRN PRN Reason: PAIN Last Admin: 11/30/18 14:06 Dose: 650 mg Aspirin (Asa -) 81 mg PO DAILY [facility] Last Admin: 12/01/18 10:58 Dose: 81 mg Atorvastatin Calcium (Lipitor -) 80 mg PO HS [facility] Last Admin: 11/30/18 22:14 Dose: 80 mg Enoxaparin Sodium (Lovenox -) 40 mg SQ DAILY [facility] Last Admin: 12/01/18 10:58 Dose: 40 mg Vancomycin HCl (Vancomycin 1 Gm Premix -) 1 gm in 200 mls @ 133.333 mls/hr IVPB Q24H [facility]; Protocol Last Admin: 12/01/18 12:38 Dose: 133.333 mls/hr Ibuprofen (Motrin -) 400 mg PO DAILY PRN PRN Reason: PAIN LEVEL 1 - 3 Levothyroxine Sodium (Synthroid -) 50 mcg PO 0700 [facility] Last Admin: 12/01/18 06:23 Dose: 50 mcg Lisinopril (Prinivil) 5 mg PO DAILY [facility] Last Admin: 12/01/18 10:57 Dose: 5 mg Memantine (Namenda -) 10 mg PO BID [facility] Last Admin: 12/01/18 10:58 Dose: 10 mg Metoprolol Succinate (Toprol Xl -) 100 mg PO DAILY [facility] Last Admin: 12/01/18 10:57 Dose: 100 mg Mupirocin (Bactroban 2% Ointment -) 1 applic TP BID [facility] Last Admin: 12/01/18 10:59 Dose: 1 applic Nystatin (Nystop Powder -) 1 applic TP DAILY [facility] Last Admin: 12/01/18 10:59 Dose: 1 applic # Cellulitis + blood c/s sensitivity -- continue Vanco patient clinically improved # DM ada diet metformin on hold due to renal function continue to monitor BS will resume meds if needed # HTN BP trending low lisinopril decreased #Hypothyroid TSH / T4 # Dementia at baseline continue namenda
--- NOTE | 2018-12-01 17:49 | PN ---
Progress Note, Physician History of Present Illness: NO C/O LEG PAIN NO C/O FEVER/ CHILLS TOLERATING ANTIBIOTICS BC MULTIPLE ORGANISMS C/W CONTAMINATION - Current Medication List Current Medications: Active Medications Acetaminophen (Tylenol -) 650 mg PO Q6H PRN PRN Reason: PAIN Last Admin: 11/30/18 14:06 Dose: 650 mg Aspirin (Asa -) 81 mg PO DAILY [facility] Last Admin: 12/01/18 10:58 Dose: 81 mg Atorvastatin Calcium (Lipitor -) 80 mg PO HS [facility] Last Admin: 11/30/18 22:14 Dose: 80 mg Enoxaparin Sodium (Lovenox -) 40 mg SQ DAILY [facility] Last Admin: 12/01/18 10:58 Dose: 40 mg Vancomycin HCl (Vancomycin 1 Gm Premix -) 1 gm in 200 mls @ 133.333 mls/hr IVPB Q24H [facility]; Protocol Last Admin: 12/01/18 12:38 Dose: 133.333 mls/hr Ibuprofen (Motrin -) 400 mg PO DAILY PRN PRN Reason: PAIN LEVEL 1 - 3 Levothyroxine Sodium (Synthroid -) 50 mcg PO 0700 [facility] Last Admin: 12/01/18 06:23 Dose: 50 mcg Lisinopril (Prinivil) 5 mg PO DAILY [facility] Last Admin: 12/01/18 10:57 Dose: 5 mg Memantine (Namenda -) 10 mg PO BID [facility] Last Admin: 12/01/18 10:58 Dose: 10 mg Metoprolol Succinate (Toprol Xl -) 100 mg PO DAILY [facility] Last Admin: 12/01/18 10:57 Dose: 100 mg Mupirocin (Bactroban 2% Ointment -) 1 applic TP BID [facility] Last Admin: 12/01/18 10:59 Dose: 1 applic Nystatin (Nystop Powder -) 1 applic TP DAILY [facility] Last Admin: 12/01/18 10:59 Dose: 1 applic - Objective Vital Signs: Vital Signs Temperature 98.0 F 12/01/18 14:00 Pulse Rate 66 12/01/18 14:00 Respiratory Rate 18 12/01/18 14:00 Blood Pressure 111/56 L 12/01/18 14:00 O2 Sat by Pulse Oximetry (%) 95 11/30/18 20:54 Constitutional: Yes: No Distress Eyes: Yes: Conjunctiva Clear Cardiovascular: Yes: Regular Rate and Rhythm, S1, S2 Respiratory: Yes: CTA Bilaterally Gastrointestinal: Yes: Normal Bowel Sounds Extremities: Yes: Other (DECREASED ERYTHEMA LE) Labs: CBC, BMP 12/01/18 07:15 12/01/18 07:15 INR, PTT INR 1.17 (0.83-1.09) H 11/27/18 11:55 Assessment/Plan CELLULITIS SEPSIS SECONDARY TO SKIN INFECTION PCN ALLERGY +BC C/W CONTAMINATION CONTINUE VANCOMYCIN
[2018-12-01] MEDS: ATORVASTATIN CA 80 MG TABLET (FP) PO SCH (22:23)
[2018-12-02] MEDS: LEVOTHYROXINE NA 50 MCG TABLET (FP) PO SCH ×2 (05:48→07:21)
--- NOTE | 2018-12-02 08:59 | PN ---
Progress Note (short form) - Note Progress Note: patient seen and examined in her room legs elevated Vital Signs Period Temp Pulse Resp BP Sys/Recinos Pulse Ox Last 24 Hr 98.0 F-99.2 F 60-67 18-20 111-138/42-70 95-95 neck supple heart S1/S2 lungs clear bilat abd soft non tender ext no significant erythema / blistering has resolved briscoe noted from admission date + pulses CBC, BMP 12/01/18 07:15 12/01/18 07:15 CBC, BMP 11/29/18 06:45 11/30/18 06:20 Microbiology 11/27/18 12:10 Blood - Peripheral Venous Blood Culture - Final Cdc Group G 11/27/18 12:10 Blood - Peripheral Venous Blood Culture - Final Enterococcus Faecalis Staphylococcus Epidermidis 11/27/18 11:55 Urine - Urine - Catheterized Urine Culture - Final NO GROWTH OBTAINED Active Medications Acetaminophen (Tylenol -) 650 mg PO Q6H PRN PRN Reason: PAIN Last Admin: 11/30/18 14:06 Dose: 650 mg Aspirin (Asa -) 81 mg PO DAILY [facility] Last Admin: 12/02/18 11:32 Dose: 81 mg Atorvastatin Calcium (Lipitor -) 80 mg PO HS [facility] Last Admin: 12/01/18 22:23 Dose: 80 mg Enoxaparin Sodium (Lovenox -) 40 mg SQ DAILY [facility] Last Admin: 12/02/18 11:32 Dose: 40 mg Vancomycin HCl (Vancomycin 1 Gm Premix -) 1 gm in 200 mls @ 133.333 mls/hr IVPB Q24H [facility]; Protocol Last Admin: 12/01/18 12:38 Dose: 133.333 mls/hr Ibuprofen (Motrin -) 400 mg PO DAILY PRN PRN Reason: PAIN LEVEL 1 - 3 Levothyroxine Sodium (Synthroid -) 50 mcg PO 0700 [facility] Last Admin: 12/02/18 07:21 Dose: Not Given Lisinopril (Prinivil) 5 mg PO DAILY [facility] Last Admin: 12/02/18 11:32 Dose: 5 mg Memantine (Namenda -) 10 mg PO BID [facility] Last Admin: 12/02/18 11:34 Dose: 10 mg Metoprolol Succinate (Toprol Xl -) 100 mg PO DAILY [facility] Last Admin: 12/02/18 11:32 Dose: 100 mg Mupirocin (Bactroban 2% Ointment -) 1 applic TP BID [facility] Last Admin: 12/02/18 11:35 Dose: 1 applic Nystatin (Nystop Powder -) 1 applic TP DAILY [facility] Last Admin: 12/02/18 11:33 Dose: 1 applic # Cellulitis + blood c/s sensitivity -- continue Vanco / vanco trough patient clinically improved # DM ada diet metformin on hold due to renal function continue to monitor BS will resume meds if needed # HTN BP trending low lisinopril decreased #Hypothyroid TSH / T4 # Dementia at baseline continue namenda will need STR for safe discharge
[2018-12-02] MEDS: ENOXAPARIN NA (PORCINE) 40 MG/0.4 ML DISP.SYRIN SQ SCH (11:32)
[2018-12-02] MEDS: LISINOPRIL 5 MG TABLET (FP) PO SCH (11:32)
[2018-12-02] MEDS: ASPIRIN 81 MG CHEWABLE TABLETS PO SCH (11:32)
[2018-12-02] MEDS: NYSTATIN POWDER 100,000 UNITS/GM - 15 GM TOPICAL POWDER TP SCH (11:33)
[2018-12-02] MEDS: MEMANTINE HCL 10 MG TABLET (FP) PO SCH ×2 (11:34→22:07)
[2018-12-02] MEDS: MUPIROCIN 2% TOPICAL OINTMENT 22 GM TUBE TP SCH ×2 (11:35→22:06)
[2018-12-02] MEDS: VANCOMYCIN 1 GM PREMIX - 1 GM/200 ML BAG IVPB SCH (12:58)
--- NOTE | 2018-12-02 13:05 | ECHO ---
Name: LILI CASTILLO Exam:Adult Echocardiogram Study Date: 12/02/2018 08:11 AM Age: 88 yrs Reason For Study: valvular disease Height: 67 in Weight: 185 lb BSA: 2.0 m2 MMode/2D Measurements & Calculations IVSd: 1.6 cm Ao root diam: 2.5 cm LVIDd: 3.9 cm LA dimension: 4.0 cm LVIDs: 2.7 cm LVPWd: 0.73 cm EDV(Teich): 66.1 ml LVOT diam: 2.0 cm ESV(Teich): 26.9 ml Doppler Measurements & Calculations MV E max tam: 75.2 cm/sec Ao V2 max: 216.5 cm/sec MV A max tam: 119.8 cm/sec Ao max P.8 mmHg MV E/A: 0.63 Ao V2 mean: 155.9 cm/sec MV dec time: 0.27 sec Ao mean P.0 mmHg Ao V2 VTI: 55.3 cm IRVIN(I,D): 1.1 cm2 IRVIN(V,D): 1.2 cm2 LV V1 max P.8 mmHg SV(LVOT): 60.4 ml LV V1 mean P.6 mmHg LV V1 max: 83.2 cm/sec LV V1 mean: 58.4 cm/sec LV V1 VTI: 19.7 cm TR max tam: 304.5 cm/sec Med Peak E' Tam: 5.3 cm/sec TR max P.1 mmHg Med E/e': 14.1 Lat Peak E' Tam: 6.9 cm/sec Lat E/e': 11.0 Procedure The study was technically difficult with many images being suboptimal in quality. Left Ventricle There is moderate concentric left ventricular hypertrophy. The left ventricle is not well visualized. The left ventricular ejection fraction is normal. E/A reversal consistent with but not diagnostic of poor LV compliance. Regional wall motion abnormalities cannot be excluded due to limited visualization. Right Ventricle The right ventricle is not well visualized. Atria The left atrium is mildly dilated. The right atrium is mildly dilated. Mitral Valve There is no mitral valve stenosis. There is mild mitral regurgitation. Tricuspid Valve The tricuspid valve is not well visualized. There is no tricuspid stenosis. There is moderate tricusp id regurgitation. Right ventricular systolic pressure is elevated at 40-50mmHg. Aortic Valve The aortic valve is not well visualized. Mild valvular aortic stenosis. No aortic regurgitation is pr esent. Pulmonic Valve The pulmonic valve is not well visualized. Great Vessels The aortic root is normal size. Pericardium/Pleura There is no pericardial effusion. Interpretation Summary The study was technically difficult with many images being suboptimal in quality. There is moderate concentric left ventricular hypertrophy. The left ventricular ejection fraction is normal. Regional wall motion abnormalities cannot be excluded due to limited visualization. The left ventricle is not well visualized. The right ventricle is not well visualized. The left atrium is mildly dilated. The right atrium is mildly dilated. Mild valvular aortic stenosis. No aortic regurgitation is present. There is moderate tricuspid regurgitation. Right ventricular systolic pressure is elevated at 40-50mmHg. E/A reversal consistent with but not diagnostic of poor LV compliance There is mild mitral regurgitation. MD Lito Reid 12/02/2018 01:05 PM
[2018-12-02] MEDS: ATORVASTATIN CA 80 MG TABLET (FP) PO SCH (22:06)
[2018-12-03] MEDS: LEVOTHYROXINE NA 50 MCG TABLET (FP) PO SCH (06:04)
--- NOTE | 2018-12-03 09:58 | PN ---
Progress Note (short form) - Note Progress Note: patient seen and examined in her room legs elevated Vital Signs Period Temp Pulse Resp BP Sys/Recinos Pulse Ox Last 24 Hr 97.8 F-98.7 F 54-78 18-20 103-147/50-67 98 neck supple heart S1/S2 lungs clear bilat abd soft non tender ext no significant erythema / blistering has resolved briscoe noted from admission date + pulses CBC, BMP 12/01/18 07:15 12/01/18 07:15 CBC, BMP 11/29/18 06:45 11/30/18 06:20 Microbiology 11/27/18 12:10 Blood - Peripheral Venous Blood Culture - Final Cdc Group G 11/27/18 12:10 Blood - Peripheral Venous Blood Culture - Final Enterococcus Faecalis Staphylococcus Epidermidis 11/27/18 11:55 Urine - Urine - Catheterized Urine Culture - Final NO GROWTH OBTAINED Active Medications Acetaminophen (Tylenol -) 650 mg PO Q6H PRN PRN Reason: PAIN Last Admin: 11/30/18 14:06 Dose: 650 mg Aspirin (Asa -) 81 mg PO DAILY [facility] Last Admin: 12/02/18 11:32 Dose: 81 mg Atorvastatin Calcium (Lipitor -) 80 mg PO HS [facility] Last Admin: 12/02/18 22:06 Dose: 80 mg Enoxaparin Sodium (Lovenox -) 40 mg SQ DAILY [facility] Last Admin: 12/02/18 11:32 Dose: 40 mg Vancomycin HCl (Vancomycin 1 Gm Premix -) 1 gm in 200 mls @ 133.333 mls/hr IVPB Q24H [facility]; Protocol Last Admin: 12/02/18 12:58 Dose: 133.333 mls/hr Ibuprofen (Motrin -) 400 mg PO DAILY PRN PRN Reason: PAIN LEVEL 1 - 3 Levothyroxine Sodium (Synthroid -) 50 mcg PO 0700 [facility] Last Admin: 12/03/18 06:04 Dose: 50 mcg Lisinopril (Prinivil) 5 mg PO DAILY [facility] Last Admin: 12/02/18 11:32 Dose: 5 mg Memantine (Namenda -) 10 mg PO BID [facility] Last Admin: 12/02/18 22:07 Dose: 10 mg Metoprolol Succinate (Toprol Xl -) 100 mg PO DAILY [facility] Last Admin: 12/02/18 11:32 Dose: 100 mg Mupirocin (Bactroban 2% Ointment -) 1 applic TP BID [facility] Last Admin: 12/02/18 22:06 Dose: 1 applic Nystatin (Nystop Powder -) 1 applic TP DAILY [facility] Last Admin: 12/02/18 11:33 Dose: 1 applic # Cellulitis + blood c/s sensitivity -- continue Vanco / vanco trough patient clinically improved # DM ada diet metformin on hold due to renal function continue to monitor BS will resume meds if needed # HTN BP trending low lisinopril decreased #Hypothyroid TSH / T4 # Dementia at baseline continue namenda will need STR for safe discharge
[2018-12-03] MEDS: LISINOPRIL 5 MG TABLET (FP) PO SCH (10:24)
[2018-12-03] MEDS: ASPIRIN 81 MG CHEWABLE TABLETS PO SCH (10:24)
[2018-12-03] MEDS: MEMANTINE HCL 10 MG TABLET (FP) PO SCH ×2 (10:26→22:08)
[2018-12-03] MEDS: VANCOMYCIN 1 GM PREMIX - 1 GM/200 ML BAG IVPB SCH (10:28)
[2018-12-03] MEDS: NYSTATIN POWDER 100,000 UNITS/GM - 15 GM TOPICAL POWDER TP SCH (10:28)
[2018-12-03] MEDS: ENOXAPARIN NA (PORCINE) 40 MG/0.4 ML DISP.SYRIN SQ SCH (10:28)
[2018-12-03] MEDS: MUPIROCIN 2% TOPICAL OINTMENT 22 GM TUBE TP SCH ×2 (10:28→22:08)
--- NOTE | 2018-12-03 16:06 | PN ---
Progress Note, Physician History of Present Illness: NO C/O LEG PAIN NO C/O FEVER/ CHILLS TOLERATING ANTIBIOTICS BC MULTIPLE ORGANISMS C/W CONTAMINATION - Current Medication List Current Medications: Active Medications Acetaminophen (Tylenol -) 650 mg PO Q6H PRN PRN Reason: PAIN Last Admin: 11/30/18 14:06 Dose: 650 mg Aspirin (Asa -) 81 mg PO DAILY [facility] Last Admin: 12/03/18 10:24 Dose: 81 mg Atorvastatin Calcium (Lipitor -) 80 mg PO HS [facility] Last Admin: 12/02/18 22:06 Dose: 80 mg Enoxaparin Sodium (Lovenox -) 40 mg SQ DAILY [facility] Last Admin: 12/03/18 10:28 Dose: 40 mg Vancomycin HCl (Vancomycin 1 Gm Premix -) 1 gm in 200 mls @ 133.333 mls/hr IVPB Q24H [facility]; Protocol Last Admin: 12/03/18 10:28 Dose: 133.333 mls/hr Ibuprofen (Motrin -) 400 mg PO DAILY PRN PRN Reason: PAIN LEVEL 1 - 3 Levothyroxine Sodium (Synthroid -) 50 mcg PO 0700 [facility] Last Admin: 12/03/18 06:04 Dose: 50 mcg Lisinopril (Prinivil) 5 mg PO DAILY [facility] Last Admin: 12/03/18 10:24 Dose: Not Given Memantine (Namenda -) 10 mg PO BID [facility] Last Admin: 12/03/18 10:26 Dose: 10 mg Metoprolol Succinate (Toprol Xl -) 100 mg PO DAILY [facility] Last Admin: 12/03/18 10:26 Dose: Not Given Mupirocin (Bactroban 2% Ointment -) 1 applic TP BID [facility] Last Admin: 12/03/18 10:28 Dose: 1 applic Nystatin (Nystop Powder -) 1 applic TP DAILY [facility] Last Admin: 12/03/18 10:28 Dose: 1 applic - Objective Vital Signs: Vital Signs Temperature 99.1 F 12/03/18 14:16 Pulse Rate 69 12/03/18 14:16 Respiratory Rate 22 H 12/03/18 14:16 Blood Pressure 101/51 L 12/03/18 14:16 O2 Sat by Pulse Oximetry (%) 98 12/03/18 09:00 Constitutional: Yes: No Distress Eyes: Yes: Conjunctiva Clear Cardiovascular: Yes: Regular Rate and Rhythm, S1, S2 Respiratory: Yes: CTA Bilaterally Gastrointestinal: Yes: Normal Bowel Sounds, Soft. No: Tenderness Extremities: Yes: Other (SLOWLY RESOLVING ERYTHEMA L LE) Labs: CBC, BMP 12/01/18 07:15 12/01/18 07:15 INR, PTT INR 1.17 (0.83-1.09) H 11/27/18 11:55 Assessment/Plan CELLULITIS SEPSIS SECONDARY TO SKIN INFECTION PCN ALLERGY +BC C/W CONTAMINATION CONTINUE VANCOMYCIN
[2018-12-03] MEDS: ATORVASTATIN CA 80 MG TABLET (FP) PO SCH (22:07)
[2018-12-04] MEDS: LEVOTHYROXINE NA 50 MCG TABLET (FP) PO SCH (06:04)
[2018-12-04] MEDS: LISINOPRIL 5 MG TABLET (FP) PO SCH (09:35)
[2018-12-04] MEDS: ENOXAPARIN NA (PORCINE) 40 MG/0.4 ML DISP.SYRIN SQ SCH (09:35)
--- NOTE | 2018-12-04 09:35 | PN ---
Progress Note (short form) - Note Progress Note: patient seen and examined in her room legs elevated discussed with ID to continue PO ABx for 10 additional days Vital Signs Period Temp Pulse Resp BP Sys/Recinos Pulse Ox Last 24 Hr 97.9 F-99.1 F 64-78 - 101-150/51-118 98 neck supple heart S1/S2 lungs clear bilat abd soft non tender ext no significant erythema / blistering has resolved briscoe noted from admission date + pulses CBC, BMP 12/01/18 07:15 12/01/18 07:15 CBC, BMP 11/29/18 06:45 11/30/18 06:20 Microbiology 11/27/18 12:10 Blood - Peripheral Venous Blood Culture - Final Cdc Group G 11/27/18 12:10 Blood - Peripheral Venous Blood Culture - Final Enterococcus Faecalis Staphylococcus Epidermidis 11/27/18 11:55 Urine - Urine - Catheterized Urine Culture - Final NO GROWTH OBTAINED Active Medications Acetaminophen (Tylenol -) 650 mg PO Q6H PRN PRN Reason: PAIN Last Admin: 11/30/18 14:06 Dose: 650 mg Aspirin (Asa -) 81 mg PO DAILY [facility] Last Admin: 12/03/18 10:24 Dose: 81 mg Atorvastatin Calcium (Lipitor -) 80 mg PO HS [facility] Last Admin: 12/03/18 22:07 Dose: 80 mg Enoxaparin Sodium (Lovenox -) 40 mg SQ DAILY [facility] Last Admin: 12/03/18 10:28 Dose: 40 mg Vancomycin HCl (Vancomycin 1 Gm Premix -) 1 gm in 200 mls @ 133.333 mls/hr IVPB Q24H [facility]; Protocol Last Admin: 12/03/18 10:28 Dose: 133.333 mls/hr Ibuprofen (Motrin -) 400 mg PO DAILY PRN PRN Reason: PAIN LEVEL 1 - 3 Levothyroxine Sodium (Synthroid -) 50 mcg PO 0700 [facility] Last Admin: 12/04/18 06:04 Dose: 50 mcg Lisinopril (Prinivil) 5 mg PO DAILY [facility] Last Admin: 12/03/18 10:24 Dose: Not Given Memantine (Namenda -) 10 mg PO BID [facility] Last Admin: 12/03/18 22:08 Dose: 10 mg Metoprolol Succinate (Toprol Xl -) 100 mg PO DAILY [facility] Last Admin: 12/04/18 09:29 Dose: Not Given Mupirocin (Bactroban 2% Ointment -) 1 applic TP BID [facility] Last Admin: 12/03/18 22:08 Dose: 1 applic Nystatin (Nystop Powder -) 1 applic TP DAILY [facility] Last Admin: 12/03/18 10:28 Dose: 1 applic # Cellulitis + blood c/s sensitivity -- continue Vanco / vanco trough patient clinically improved discussed woth ID will change to PO appropriate to transfer to STR # DM ada diet metformin on hold due to renal function continue to monitor BS will resume meds if needed # HTN BP trending low lisinopril decreased #Hypothyroid TSH / T4 # Dementia at baseline continue namenda will need STR for safe discharge
[2018-12-04] MEDS: MEMANTINE HCL 10 MG TABLET (FP) PO SCH (09:36)
[2018-12-04] MEDS: ASPIRIN 81 MG CHEWABLE TABLETS PO SCH (09:36)
[2018-12-04] MEDS: VANCOMYCIN 1 GM PREMIX - 1 GM/200 ML BAG IVPB SCH (10:01)
--- NOTE | 2018-12-04 10:20 | DS ---
Physical Examination Vital Signs: Vital Signs Temperature 98.4 F 12/04/18 09:00 Pulse Rate 74 12/04/18 09:00 Respiratory Rate 16 12/04/18 09:00 Blood Pressure 107/57 L 12/04/18 09:00 O2 Sat by Pulse Oximetry (%) 98 12/03/18 21:00 Findings/Remarks: 88 year old female from assisted living residence with a significant past medical history of hyperlipidemia, hypertension, diabetes, lymphedema, hypothyroidism, left leg ulcer (2013) and CHF who presents to the emergency department with a left leg wound and redness for the past several days. The patient's daughter states that the patient was seen at urgent care 2 days ago for left leg erythema and drainage. They recommended a topical cream to apply to her leg and to return to daily for wound checks. Her daughter urged her to go to the ED due to increasing pain and concern for infection. She denied any recent injury, numbness, tingling ,weakness or radiation or her pain. The patient denied any chills, nausea, vomiting, diarrhea, constipation urinary symptoms, chest pain, shortness of breath, headache or dizziness, but daughter stated that she had slurring of speech 2 days ago that seems to have resolved. daughter raises concern as to whether or not she is properly caring for herself on her own. During hosptal stay treated with Vanco due to Pcn allergy -- blood c/s woth multiple organisms c/w contamination Discussed with ID and recommend 10 additional days of PO abx after d/c Patient scheduled to go to [facility] for wound care and ADL improvement Microbiology 11/27/18 12:10 Blood - Peripheral Venous Blood Culture - Final Cdc Group G 11/27/18 12:10 Blood - Peripheral Venous Blood Culture - Final Enterococcus Faecalis Staphylococcus Epidermidis 11/27/18 11:55 Urine - Urine - Catheterized Urine Culture - Final NO GROWTH OBTAINE # Cellulitis + blood c/s c/w contaminant sensitivity -- continue Vanco / vanco trough patient clinically improved discussed woth ID will change to PO appropriate to transfer to [facility] # DM ada diet metformin on hold due to renal function continue to monitor BS continue off metformin # HTN BP trending low lisinopril decreased Bp remains acceptable range #Hypothyroid TSH / T4 # Dementia at baseline continue namenda Constitutional: Yes: Well Nourished, No Distress, Calm Eyes: Yes: Conjunctiva Clear, EOM Intact HENT: Yes: Atraumatic, Normocephalic Neck: Yes: Supple, Trachea Midline Cardiovascular: Yes: Regular Rate and Rhythm Respiratory: Yes: Regular, CTA Bilaterally Gastrointestinal: Yes: Normal Bowel Sounds, Soft ...Rectal Exam: Yes: Deferred Renal/: Yes: WNL Breast(s): Yes: WNL Musculoskeletal: Yes: WNL Extremities: Yes: WNL, Erythema (anteroir TIB left LE). No: Calf Tenderness Edema: No Peripheral Pulses WNL: Yes Integumentary: Yes: Erythema, Rash Wound/Incision: Yes: Clean/Dry Neurological: Yes: Confusion, Pre-Existing Deficit, Unsteady Gait Psychiatric: Yes: Alert Labs: CBC, BMP 12/01/18 07:15 12/01/18 07:15 Discharge Summary Reason For Visit: CELLULITIS Current Active Problems Bacteremia due to Gram-positive bacteria (Acute) Cellulitis (Acute) Cellulitis of leg without foot (Acute) Dementia (Acute) Diabetes type 2, controlled (Acute) Fungal dermatitis (Acute) History of multiple sclerosis (Acute) Hypertensive heart and chronic kidney disease (Acute) Hypothyroid (Acute) Lipidemia (Acute) TIA (transient ischemic attack) (Acute) Condition: Improved - Instructions Disposition: ASSISTED FACILITY - Home Medications Comprehensive Discharge Medication List: Ambulatory Orders Levothyroxine [Synthroid -] 50 mcg PO DAILY 06/16/17 Lisinopril 10 mg PO DAILY 06/16/17 Memantine HCl [Namenda Xr] 28 mg PO DAILY 06/16/17 Metoprolol Succinate [Toprol Xl] 100 mg PO DAILY 06/16/17 Simvastatin 80 mg PO HS 06/16/17 metFORMIN HCL [Metformin HCl ER] 1,000 mg PO BID 06/16/17 Aspirin 81 mg PO DAILY 11/27/18
[2018-12-04] MEDS: MUPIROCIN 2% TOPICAL OINTMENT 22 GM TUBE TP SCH (14:49)
--- NOTE | 2018-12-04 15:00 | PN ---
Progress Note, Physician History of Present Illness: NO C/O LEG PAIN NO C/O FEVER/ CHILLS TOLERATING ANTIBIOTICS BC MULTIPLE ORGANISMS C/W CONTAMINATION - Current Medication List Current Medications: Active Medications Acetaminophen (Tylenol -) 650 mg PO Q6H PRN PRN Reason: PAIN Last Admin: 11/30/18 14:06 Dose: 650 mg Aspirin (Asa -) 81 mg PO DAILY [facility] Last Admin: 12/04/18 09:36 Dose: 81 mg Atorvastatin Calcium (Lipitor -) 80 mg PO HS [facility] Last Admin: 12/03/18 22:07 Dose: 80 mg Enoxaparin Sodium (Lovenox -) 40 mg SQ DAILY [facility] Last Admin: 12/04/18 09:35 Dose: 40 mg Ibuprofen (Motrin -) 400 mg PO DAILY PRN PRN Reason: PAIN LEVEL 1 - 3 Levothyroxine Sodium (Synthroid -) 50 mcg PO 0700 [facility] Last Admin: 12/04/18 06:04 Dose: 50 mcg Lisinopril (Prinivil) 5 mg PO DAILY [facility] Last Admin: 12/04/18 09:35 Dose: 5 mg Memantine (Namenda -) 10 mg PO BID [facility] Last Admin: 12/04/18 09:36 Dose: 10 mg Metoprolol Succinate (Toprol Xl -) 100 mg PO DAILY [facility] Last Admin: 12/04/18 09:29 Dose: Not Given Mupirocin (Bactroban 2% Ointment -) 1 applic TP BID [facility] Last Admin: 12/03/18 22:08 Dose: 1 applic Nystatin (Nystop Powder -) 1 applic TP DAILY [facility] Last Admin: 12/03/18 10:28 Dose: 1 applic Trimethoprim/Sulfamethoxazole (Bactrim Ds -) 1 each PO BID [facility] Trimethoprim/Sulfamethoxazole (Bactrim Ds -) 1 each PO BID [facility] - Objective Vital Signs: Vital Signs Temperature 98.4 F 12/04/18 09:00 Pulse Rate 74 12/04/18 09:00 Respiratory Rate 16 12/04/18 09:00 Blood Pressure 107/57 L 12/04/18 09:00 O2 Sat by Pulse Oximetry (%) 98 12/03/18 21:00 Constitutional: Yes: No Distress Cardiovascular: Yes: Regular Rate and Rhythm, S1, S2 Respiratory: Yes: CTA Bilaterally Gastrointestinal: Yes: Normal Bowel Sounds, Soft Extremities: Yes: Other (erythema L LE much improved) Labs: CBC, BMP 12/01/18 07:15 12/01/18 07:15 INR, PTT INR 1.17 (0.83-1.09) H 11/27/18 11:55 Assessment/Plan CELLULITIS improved PCN ALLERGY +BC C/W CONTAMINATION SUBSTITUTE BACTRIM DS PO BID X 7D
[2018-12-04] MEDS: NYSTATIN POWDER 100,000 UNITS/GM - 15 GM TOPICAL POWDER TP SCH (18:49)
[2018-12-04 19:03] VITALS: BP 139/52; PULSE 66; TEMP 98
[2018-12-04] MEDS ORDERED: SULFAMETHOXAZOLE/TRIMETHOPRIM 800MG/160MG D.S. TABLET PO SCH ×2 (22:00)
== END 2018-12-04 20:06 | DRG 872 ==
LOC: JER 10:23 → JERBED 14:10 → J5S 15:31
PROVIDERS: ADMIT Family Medicine; ATTEND Family Medicine
DX: A41.1 Sepsis due to other specified staphylococcus (principal); L03.116 Cellulitis of left lower limb; I13.0 Hypertensive heart and chronic kidney disease with heart failure and stage 1 through stage 4 chronic kidney disease, or unspecified chronic kidney disease; N17.9 Acute kidney failure, unspecified; B95.7 Other staphylococcus as the cause of diseases classified elsewhere; B95.2 Enterococcus as the cause of diseases classified elsewhere; G35 Multiple sclerosis; E11.22 Type 2 diabetes mellitus with diabetic chronic kidney disease; I50.9 Heart failure, unspecified; N18.2 Chronic kidney disease, stage 2 (mild); E87.5 Hyperkalemia; I89.0 Lymphedema, not elsewhere classified; E03.9 Hypothyroidism, unspecified; L89.302 Pressure ulcer of unspecified buttock, stage 2; Z79.84 Long term (current) use of oral hypoglycemic drugs; Z86.73 Personal history of transient ischemic attack (TIA), and cerebral infarction without residual deficits; Z88.0 Allergy status to penicillin; Z90.710 Acquired absence of both cervix and uterus; B36.9 Superficial mycosis, unspecified
CPT/HCPCS: 36415; 70450-TC; 71045-TC-FY; 80048; 80053; 81003; 82550; 82962; 83036; 83605; 83880; 84439; 84443; 84484; 85025; 85027; 85610; 85651; 86140; 87040; 87077; 87086; 87186; 93005; 93010; 93306-TC; 97116-GP; 97161-GP; 99283-25; G0480; J7030